=== PATIENT | female | born 1965 | race African-American/Black ===

== ENCOUNTER 2022-10-27 12:40 | Emergency (ER) | payer MEDICARE, MEDICAID ==
[~2022-10-27] VITALS: Ht 165.1 cm; Wt 127.3 kg
[2022-10-27 12:49] VITALS: TEMP 97.9
[2022-10-27] MEDS ORDERED: DULO20CA71 PO (12:50)
[2022-10-27] MEDS ORDERED: INSU100V12 SQ (12:50)
[2022-10-27] MEDS ORDERED: METO50 PO (12:50)
[2022-10-27] MEDS ORDERED: METF-81 PO (12:50)
[2022-10-27] MEDS ORDERED: ATOR20TA PO (12:50)
[2022-10-27] MEDS ORDERED: AMLO-257 PO (12:50)
[2022-10-27] MEDS ORDERED: LURA40TA2 PO (12:50)
[2022-10-27] MEDS ORDERED: LOSA-382 PO (12:50)
[2022-10-27] MEDS ORDERED: SODIUM CHLORIDE 0.9% 1,000 ML IV ONE ×2 (13:15→16:00)
[2022-10-27 13:27] LABS: APPEARANCE,URINE CLEAR (CLEAR); BILIRUBIN,URINE NEGATIVE (NEGATIVE); GLUCOSE, URINE (UA) >=1000 mg/dL (NEGATIVE); KETONES,URINE NEGATIVE (NEGATIVE); LEUKOCYTE ESTERASE ,URINE MODERATE (NEGATIVE); NITRATE,URINE NEGATIVE (NEGATIVE); OCCULT BLOOD,URINE SMALL (NEGATIVE); PROTEIN,URINE NEGATIVE (NEGATIVE); UROBILINOGEN,URINE <=1.0 mg/dL (<=1.0)
[2022-10-27 13:48] LABS: BASOPHILS % (AUTO) 0.6 % (0.0-2.0); EOSINOPHILS % (AUTO) 0.6 % (1.0-6.0); HEMOGLOBIN 11.6 g/dL (12.0-16.0); LYMPHOCYTES # (AUTO) 1.4 K/uL (1.0-4.8); MEAN CORPUSCULAR VOLUME 80 fL (80-100); NEUTROPHILS # (AUTO) 10.3 K/uL (1.8-7.7)
[2022-10-27 13:53] LABS: LYMPHOCYTES % (AUTO) 11.2 % (22.0-44.0); MEAN CORPUSCULAR HEMOGLOBIN 25.1 pg (26.0-34.0); MEAN CORPUSCULAR HGB CONC 31.3 G/dL (31.0-37.0); MONOCYTES # (AUTO) 0.6 K/uL (0.1-1.0); NEUTROPHILS % (AUTO) 82.6 % (40.0-70.0); PLATELET COUNT (AUTO) 314 K/uL (150-450); RED BLOOD CELL COUNT(AUTO) 4.62 MIL/uL (4.00-5.20); RED CELL DISTRIBUTION WIDTH 17.5 % (11.5-14.5)
[2022-10-27 13:59] LABS: WBC,URINE 26-50 /HPF (0-5)
[2022-10-27 14:00] LABS: BACTERIA,URINE Few /HPF (None Seen)
[2022-10-27 14:06] LABS: ACETONE,BLOOD NEGATIVE (NEGATIVE); ALANINE AMINOTRANSFERASE 14 U/L (12-78); ALBUMIN 3.1 g/dL (3.4-5.0); ALKALINE PHOSPHATASE 192 U/L (46-116); ANION GAP 10 mmol/L (8-16); ASPARTATE AMINOTRANSFERASE 14 U/L (15-37); BILIRUBIN,TOTAL 0.4 mg/dL (0.1-1.0); CARBON DIOXIDE 26 mmol/L (22-29); CHLORIDE 91 mmol/L (98-107); CREATININE 1.73 mg/dL (0.60-1.30); GLOMERULAR FILTR. RATE CALC 37 mL/min (>60); POTASSIUM 5.5 mmol/L (3.5-5.1); SODIUM SERUM 127 mmol/L (136-145); TOTAL PROTEIN, SERUM 8.6 g/dL (6.4-8.2)
[2022-10-27 14:09] LABS: GLUCOSE,RANDOM 653 mg/dL (70-110)
[2022-10-27] MEDS ORDERED: INSULIN REGULAR, HUMAN 100 UNITS/ML IVP ONE (14:15)
[2022-10-27] MEDS ORDERED: KETOROLAC TROMETHAMINE 30 MG/ML VIAL IVP ONE (14:15)
[2022-10-27] MEDS ORDERED: CEPHALEXIN MONOHYDRATE 500 MG CAPSULE PO ONE (14:15)
[2022-10-27 14:17] LABS: B-TYPE NATRIURETIC PEPTIDE 95 pg/mL (0-100)
[2022-10-27 14:36] LABS: GLUCOMETER DEV NAME(LOC) ER.6
[2022-10-27] MEDS ORDERED: ACETAMINOPHEN 500 MG TABLET PO ONE (15:00)
[2022-10-27] MEDS ORDERED: SODIUM CHLORIDE 0.9% 100 ML ONE (15:18)
[2022-10-27] MEDS ORDERED: IOHEXOL 350 MG/ML 100 ML VIAL ONE (15:18)
[2022-10-27 16:06] LABS: GLUCOMETER DEV NAME(LOC) ER.6
[2022-10-27 17:23] LABS: CALCIUM, TOTAL 7.8 mg/dL (8.8-10.5); CREATININE 1.23 mg/dL (0.60-1.30); POTASSIUM 4.4 mmol/L (3.5-5.1)
[2022-10-27] MEDS ORDERED: CEPH-558 PO (17:42)
[2022-10-27 18:00] VITALS: BP 123/81; PULSE 85; RESP 18
== END 2022-10-27 18:31 | disposition home or self-care (01) ==
LOC: EMS 12:40
DX: N39.0 Urinary tract infection, site not specified (principal); N64.4 Mastodynia; E11.65 Type 2 diabetes mellitus with hyperglycemia; F32.A Depression, unspecified; E78.00 Pure hypercholesterolemia, unspecified; I10 Essential (primary) hypertension; F20.9 Schizophrenia, unspecified; Z88.2 Allergy status to sulfonamides
CPT/HCPCS: 80048; 80053; 81001; 82009; 82962; 83880; 84484; 85025; 36415; 87086; 87186; 71045; 71275; 99285; 93005; 96361; 96374; J1815; Q9967; J7030; J7050

== ENCOUNTER 2022-10-29 17:49 | Inpatient (IN) | payer MEDICARE, MEDICAID ==
[~2022-10-29] VITALS: Ht 160 cm; Wt 130.0 kg
[~2022-10-29 17:49] MED LIST: AMLO-257 PO; ATOR20TA PO; CEPH-558 PO; DULO20CA71 PO; INSU100V12 SQ; LOSA-382 PO; LURA40TA2 PO; METF-81 PO; METO50 PO
[2022-10-29] MEDS ORDERED: NYST60PO TP (18:20)
[2022-10-29] MEDS ORDERED: HYDR100C2 PO (18:20)
[2022-10-29] MEDS ORDERED: SOLI5TAB6 PO (18:20)
[2022-10-29] MEDS ORDERED: DOXE100C4 PO (18:20)
[2022-10-29] MEDS ORDERED: LURA80TA4 PO (18:20)
[2022-10-29] MEDS ORDERED: SPIR-37 PO (18:20)
[2022-10-29] MEDS ORDERED: INSU100I56 SQ (18:20)
[2022-10-29] MEDS ORDERED: SEMA14TA2 PO (18:20)
[2022-10-29] MEDS ORDERED: LOSA100T59 PO (18:20)
[2022-10-29] MEDS ORDERED: METF-446 PO (18:20)
[2022-10-29] MEDS ORDERED: CefTRIAXone 1 GM/DEXTROSE 50 ML IV ONE (18:30)
[2022-10-29] MEDS ORDERED: SODIUM CHLORIDE 0.9% 2,100 ML IV ONE (18:30)
[2022-10-29] MEDS ORDERED: 0.9% SODIUM CHLORIDE 10 ML SYRINGE IVP PRN (18:30)
[2022-10-29] MEDS ORDERED: ACETAMINOPHEN 500 MG TABLET PO ONE (19:15)
[2022-10-29 19:23] LABS: BASOPHILS % (AUTO) 0.4 % (0.0-2.0); EOSINOPHILS % (AUTO) 0.1 % (1.0-6.0); HEMATOCRIT 32.1 % (36-46); HEMOGLOBIN 10.4 g/dL (12.0-16.0); LYMPHOCYTES # (AUTO) 0.8 K/uL (1.0-4.8); MEAN CORPUSCULAR HEMOGLOBIN 25.1 pg (26.0-34.0); MEAN CORPUSCULAR HGB CONC 32.3 G/dL (31.0-37.0); MEAN CORPUSCULAR VOLUME 78 fL (80-100); MONOCYTES # (AUTO) 0.8 K/uL (0.1-1.0); MONOCYTES % (AUTO) 7.5 % (2.0-9.0); NEUTROPHILS # (AUTO) 9.6 K/uL (1.8-7.7); PLATELET COUNT (AUTO) 268 K/uL (150-450); RED BLOOD CELL COUNT(AUTO) 4.14 MIL/uL (4.00-5.20); RED CELL DISTRIBUTION WIDTH 17.1 % (11.5-14.5)
[2022-10-29 19:27] LABS: CALCIUM, TOTAL 8.7 mg/dL (8.8-10.5); CREATININE 1.27 mg/dL (0.60-1.30); POTASSIUM 5.5 mmol/L (3.5-5.1)
[2022-10-29 19:34] LABS: ALBUMIN 2.6 g/dL (3.4-5.0); TOTAL PROTEIN, SERUM 7.7 g/dL (6.4-8.2)
[2022-10-29 19:35] LABS: LACTIC ACID 1.7 mmol/L (0.4-2.0)
[2022-10-29 19:37] LABS: PROTHROMBIN TIME 10.8 SEC (9.4-11.6)
[2022-10-29 21:10] LABS: APPEARANCE,URINE HAZY (CLEAR); BILIRUBIN,URINE NEGATIVE (NEGATIVE); GLUCOSE, URINE (UA) TRACE mg/dL (NEGATIVE); KETONES,URINE NEGATIVE (NEGATIVE); LEUKOCYTE ESTERASE ,URINE LARGE (NEGATIVE); NITRATE,URINE NEGATIVE (NEGATIVE); OCCULT BLOOD,URINE MODERATE (NEGATIVE); PH,URINE 5.5 (5.0-8.0); PROTEIN,URINE 30-70 mg/dL (NEGATIVE); SPECIFIC GRAVITIY, URINE 1.011 (1.003-1.030); UROBILINOGEN,URINE <=1.0 mg/dL (<=1.0)
[2022-10-29 21:34] LABS: WBC,URINE 26-50 /HPF (0-5)
[2022-10-29 21:36] LABS: BACTERIA,URINE Few /HPF (None Seen)
[2022-10-29] MEDS ORDERED: DEXTROSE 50%-WATER 25 GM/50 ML SYRINGE IVP PRN (22:00)
[2022-10-29] MEDS ORDERED: ZOLPIDEM TARTRATE 5 MG TABLET PO PRN (22:00)
[2022-10-29] MEDS ORDERED: BISACODYL 10 MG RECTAL RECTAL SUPPOSITORY PR PRN (22:00)
[2022-10-29] MEDS ORDERED: HydrOXYzine PAMOATE 50 MG CAPSULE PO PRN (22:00)
[2022-10-29] MEDS ORDERED: ACETAMINOPHEN 325 MG TABLET PO PRN (22:00)
[2022-10-29] MEDS ORDERED: ONDANSETRON HCL 4 MG/2 ML VIAL IVP PRN (22:00)
[2022-10-29] MEDS ORDERED: IPRATROPIUM BROMIDE 0.5 MG/2.5 ML NEB SOLUTION NEB PRN (22:00)
[2022-10-29] MEDS ORDERED: INSULIN LISPRO 100 UNITS/ML SQ PRN (22:00)
[2022-10-29] MEDS ORDERED: ALBUTEROL SULFATE 2.5 MG/0.5 ML NEB SOLUTION NEB PRN (22:00)
[2022-10-29 23:50] VITALS: BP 115/78; PULSE 87; RESP 20; TEMP 98.5
[2022-10-30 00:04] LABS: INFLUENZA TYPE A NEGATIVE FOR TYPE A (NEGATIVE); INFLUENZA TYPE B NEGATIVE FOR TYPE B (NEGATIVE)
[2022-10-30] MEDS: HEPARIN SODIUM,PORCINE 5,000 UNITS/ML VIAL SQ SCH ×4 (00:26→23:08)
[2022-10-30] MEDS: HYDROCODONE/ACETAMINOPHEN 5-325 MG TABLET PO PRN ×2 (00:27→20:51)
[2022-10-30 04:15] VITALS: BP 111/59; PULSE 79; RESP 20; TEMP 98.6
[2022-10-30 06:11] LABS: GLUCOMETER DEV NAME(LOC) 6S.2
[2022-10-30] MEDS ORDERED: INSULIN GLARGINE,HUM.REC.ANLOG 100 UNITS/ML SQ SCH (09:00)
[2022-10-30] MEDS: PANTOPRAZOLE SODIUM 40 MG DR TABLET PO SCH (09:00)
[2022-10-30] MEDS ORDERED: MISC MED-CONVERTED FROM AMBULATORY (Semaglutide (Rybelsus) 14 MG) PO SCH (09:00)
[2022-10-30] MEDS: SOLIFENACIN SUCCINATE 5 MG TABLET PO SCH (09:00)
[2022-10-30] MEDS: METOPROLOL TARTRATE 50 MG TABLET PO SCH ×2 (09:01→20:51)
[2022-10-30] MEDS: ATORVASTATIN CALCIUM 20 MG TABLET PO SCH (09:01)
[2022-10-30] MEDS: LOSARTAN POTASSIUM 50 MG TABLET PO SCH (09:01)
[2022-10-30] MEDS: AmLODIPine BESYLATE 5 MG TABLET PO SCH (09:01)
[2022-10-30] MEDS: MORPHINE SULFATE 2 MG/ML SYRINGE IVP PRN ×2 (09:02→12:41)
[2022-10-30] MEDS: NYSTATIN 15 GM POWDER BOTTLE TP SCH ×2 (09:02→20:52)
[2022-10-30 10:14] VITALS: BP 147/79; PULSE 98; RESP 17; TEMP 98.2
[2022-10-30] MEDS ORDERED: DEXTROSE 50%-WATER 25 GM/50 ML SYRINGE IVP PRN ×3 (12:15)
[2022-10-30] MEDS ORDERED: INSULIN GLARGINE,HUM.REC.ANLOG 100 UNITS/ML SQ ONE (12:15)
[2022-10-30] MEDS ORDERED: INSULIN LISPRO 100 UNITS/ML SQ PRN (12:15)
[2022-10-30] MEDS: INSULIN LISPRO 100 UNITS/ML SQ PRN ×3 (12:29→21:04)
[2022-10-30] MEDS ORDERED: INSULIN LISPRO 100 UNITS/ML SQ ONE (12:30)
[2022-10-30 13:54] LABS: BASOPHILS % (AUTO) 0.6 % (0.0-2.0); EOSINOPHILS % (AUTO) 0.7 % (1.0-6.0); HEMATOCRIT 32.6 % (36-46); HEMOGLOBIN 10.4 g/dL (12.0-16.0); LYMPHOCYTES # (AUTO) 1.6 K/uL (1.0-4.8); LYMPHOCYTES % (AUTO) 24.2 % (22.0-44.0); MEAN CORPUSCULAR HEMOGLOBIN 24.9 pg (26.0-34.0); MEAN CORPUSCULAR HGB CONC 31.7 G/dL (31.0-37.0); MEAN CORPUSCULAR VOLUME 79 fL (80-100); MONOCYTES # (AUTO) 0.7 K/uL (0.1-1.0); NEUTROPHILS # (AUTO) 4.4 K/uL (1.8-7.7); NEUTROPHILS % (AUTO) 64.5 % (40.0-70.0); PLATELET COUNT (AUTO) 237 K/uL (150-450); RED BLOOD CELL COUNT(AUTO) 4.15 MIL/uL (4.00-5.20); RED CELL DISTRIBUTION WIDTH 17.6 % (11.5-14.5)
[2022-10-30 13:57] LABS: GLUCOMETER DEV NAME(LOC) 6N.2B
[2022-10-30 13:57] LABS: GLUCOMETER DEV NAME(LOC) 6N.2B
[2022-10-30 14:08] LABS: ALANINE AMINOTRANSFERASE 15 U/L (12-78); ALBUMIN 2.3 g/dL (3.4-5.0); ALKALINE PHOSPHATASE 210 U/L (46-116); ANION GAP 7 mmol/L (8-16); ASPARTATE AMINOTRANSFERASE 34 U/L (15-37); BILIRUBIN,TOTAL 0.7 mg/dL (0.1-1.0); CALCIUM, TOTAL 8.7 mg/dL (8.8-10.5); CARBON DIOXIDE 27 mmol/L (22-29); CHLORIDE 98 mmol/L (98-107); CREATININE 1.09 mg/dL (0.60-1.30); GLOMERULAR FILTR. RATE CALC > 60 mL/min (>60); POTASSIUM 5.3 mmol/L (3.5-5.1); SODIUM SERUM 132 mmol/L (136-145); TOTAL PROTEIN, SERUM 7.4 g/dL (6.4-8.2)
[2022-10-30 14:13] LABS: GLUCOSE,RANDOM 401 mg/dL (70-110)
[2022-10-30 20:10] VITALS: BP 140/83; PULSE 73; RESP 20; TEMP 100
[2022-10-30] MEDS: LURASIDONE HCL 80 MG TABLET PO SCH (20:51)
[2022-10-30] MEDS: INSULIN GLARGINE,HUM.REC.ANLOG 100 UNITS/ML SQ SCH (21:03)
[2022-10-30 21:11] LABS: GLUCOMETER DEV NAME(LOC) 6N.1
[2022-10-30] MEDS: DOXEPIN HCL 100 MG CAPSULE PO SCH (23:07)
[2022-10-31 03:21] LABS: GLUCOMETER DEV NAME(LOC) 4E.2
[2022-10-31 05:00] VITALS: BP 103/88; PULSE 68; RESP 16; TEMP 98.7
[2022-10-31] MEDS: INSULIN LISPRO 100 UNITS/ML SQ PRN ×4 (06:04→20:26)
[2022-10-31 07:08] LABS: BASOPHILS % (AUTO) 0.5 % (0.0-2.0); EOSINOPHILS % (AUTO) 1.8 % (1.0-6.0); HEMATOCRIT 30.4 % (36-46); HEMOGLOBIN 9.7 g/dL (12.0-16.0); LYMPHOCYTES # (AUTO) 2.6 K/uL (1.0-4.8); LYMPHOCYTES % (AUTO) 30.6 % (22.0-44.0); MEAN CORPUSCULAR HEMOGLOBIN 25.3 pg (26.0-34.0); MEAN CORPUSCULAR HGB CONC 32.1 G/dL (31.0-37.0); MEAN CORPUSCULAR VOLUME 79 fL (80-100); MONOCYTES # (AUTO) 1.2 K/uL (0.1-1.0); MONOCYTES % (AUTO) 13.5 % (2.0-9.0); NEUTROPHILS # (AUTO) 4.6 K/uL (1.8-7.7); NEUTROPHILS % (AUTO) 53.6 % (40.0-70.0); PLATELET COUNT (AUTO) 272 K/uL (150-450); RED BLOOD CELL COUNT(AUTO) 3.85 MIL/uL (4.00-5.20); RED CELL DISTRIBUTION WIDTH 17.2 % (11.5-14.5)
[2022-10-31 07:28] LABS: ALANINE AMINOTRANSFERASE 22 U/L (12-78); ALBUMIN 2.2 g/dL (3.4-5.0); ALKALINE PHOSPHATASE 177 U/L (46-116); ANION GAP 6 mmol/L (8-16); ASPARTATE AMINOTRANSFERASE 22 U/L (15-37); BILIRUBIN,TOTAL 0.5 mg/dL (0.1-1.0); CALCIUM, TOTAL 8.8 mg/dL (8.8-10.5); CARBON DIOXIDE 28 mmol/L (22-29); CHLORIDE 102 mmol/L (98-107); CREATININE 0.79 mg/dL (0.60-1.30); GLOMERULAR FILTR. RATE CALC > 60 mL/min (>60); GLUCOSE,RANDOM 184 mg/dL (70-110); POTASSIUM 4.3 mmol/L (3.5-5.1); SODIUM SERUM 136 mmol/L (136-145); TOTAL PROTEIN, SERUM 7.1 g/dL (6.4-8.2)
[2022-10-31 07:47] VITALS: BP 121/71; PULSE 75; RESP 19; TEMP 98.3
[2022-10-31] MEDS: ATORVASTATIN CALCIUM 20 MG TABLET PO SCH (08:44)
[2022-10-31] MEDS: HEPARIN SODIUM,PORCINE 5,000 UNITS/ML VIAL SQ SCH ×3 (08:44→23:49)
[2022-10-31] MEDS: SOLIFENACIN SUCCINATE 5 MG TABLET PO SCH (08:44)
[2022-10-31] MEDS: PANTOPRAZOLE SODIUM 40 MG DR TABLET PO SCH (08:45)
[2022-10-31] MEDS: LOSARTAN POTASSIUM 50 MG TABLET PO SCH (08:45)
[2022-10-31] MEDS: AmLODIPine BESYLATE 5 MG TABLET PO SCH (08:45)
[2022-10-31] MEDS: METOPROLOL TARTRATE 50 MG TABLET PO SCH ×2 (08:46→20:27)
[2022-10-31] MEDS: HYDROCODONE/ACETAMINOPHEN 5-325 MG TABLET PO PRN (08:47)
[2022-10-31] MEDS: INSULIN GLARGINE,HUM.REC.ANLOG 100 UNITS/ML SQ SCH ×2 (09:01→20:28)
[2022-10-31] MEDS: NYSTATIN 15 GM POWDER BOTTLE TP SCH ×2 (09:01→20:31)
[2022-10-31] MEDS: MORPHINE SULFATE 2 MG/ML SYRINGE IVP PRN ×3 (09:02→20:32)
[2022-10-31] MEDS ORDERED: DENTURE ADHESIVE 68 GM CREAM DT PRN (11:15)
[2022-10-31] MEDS: MAGNESIUM HYDROXIDE SUSPENSION 30 ML UDCUP PO PRN (13:51)
[2022-10-31 15:15] VITALS: BP 113/61; PULSE 69; RESP 20; TEMP 98.6
[2022-10-31 18:16] LABS: GLUCOMETER DEV NAME(LOC) 4E.2
[2022-10-31 18:16] LABS: GLUCOMETER DEV NAME(LOC) 6S.2
[2022-10-31 18:16] LABS: GLUCOMETER DEV NAME(LOC) 4E.2
[2022-10-31 19:38] VITALS: BP 116/56; PULSE 70; RESP 18; TEMP 98.4
[2022-10-31] MEDS: DOXEPIN HCL 100 MG CAPSULE PO SCH (20:27)
[2022-10-31] MEDS: LURASIDONE HCL 80 MG TABLET PO SCH (20:27)
[2022-10-31 22:30] VITALS: BP 116/64; PULSE 73; RESP 18; TEMP 97.6
[2022-10-31] MEDS ORDERED: SODIUM CHLORIDE 0.9% 500 ML IV ONE (23:31)
[2022-10-31] MEDS: CefTRIAXone 1 GM/DEXTROSE 50 ML IV SCH (23:49)
[2022-11-01 05:10] VITALS: BP 119/63; PULSE 70; RESP 20; TEMP 98
[2022-11-01 06:42] LABS: GLUCOMETER DEV NAME(LOC) 6N.1
[2022-11-01 06:42] LABS: GLUCOMETER DEV NAME(LOC) 6N.1
[2022-11-01 07:27] LABS: EOSINOPHILS % (AUTO) 1.4 % (1.0-6.0); HEMATOCRIT 31.3 % (36-46); HEMOGLOBIN 9.8 g/dL (12.0-16.0); LYMPHOCYTES # (AUTO) 3.1 K/uL (1.0-4.8); LYMPHOCYTES % (AUTO) 30.7 % (22.0-44.0); MEAN CORPUSCULAR HEMOGLOBIN 24.6 pg (26.0-34.0); MEAN CORPUSCULAR HGB CONC 31.3 G/dL (31.0-37.0); MEAN CORPUSCULAR VOLUME 79 fL (80-100); MONOCYTES % (AUTO) 9.4 % (2.0-9.0); NEUTROPHILS # (AUTO) 5.8 K/uL (1.8-7.7); NEUTROPHILS % (AUTO) 57.5 % (40.0-70.0); PLATELET COUNT (AUTO) 307 K/uL (150-450); RED BLOOD CELL COUNT(AUTO) 3.99 MIL/uL (4.00-5.20); RED CELL DISTRIBUTION WIDTH 17.2 % (11.5-14.5)
[2022-11-01 07:34] LABS: ALANINE AMINOTRANSFERASE 20 U/L (12-78); ALBUMIN 2.3 g/dL (3.4-5.0); ALKALINE PHOSPHATASE 191 U/L (46-116); ANION GAP 9 mmol/L (8-16); ASPARTATE AMINOTRANSFERASE 24 U/L (15-37); BILIRUBIN,TOTAL 0.4 mg/dL (0.1-1.0); CALCIUM, TOTAL 8.9 mg/dL (8.8-10.5); CARBON DIOXIDE 30 mmol/L (22-29); CHLORIDE 100 mmol/L (98-107); CREATININE 0.99 mg/dL (0.60-1.30); GLOMERULAR FILTR. RATE CALC > 60 mL/min (>60); GLUCOSE,RANDOM 104 mg/dL (70-110); POTASSIUM 4.4 mmol/L (3.5-5.1); SODIUM SERUM 139 mmol/L (136-145); TOTAL PROTEIN, SERUM 7.3 g/dL (6.4-8.2)
[2022-11-01 07:37] VITALS: BP 126/75; PULSE 66; RESP 20; TEMP 98.3
[2022-11-01] MEDS: SOLIFENACIN SUCCINATE 5 MG TABLET PO SCH (08:51)
[2022-11-01] MEDS: AmLODIPine BESYLATE 5 MG TABLET PO SCH (08:51)
[2022-11-01] MEDS: ATORVASTATIN CALCIUM 20 MG TABLET PO SCH (08:51)
[2022-11-01] MEDS: HEPARIN SODIUM,PORCINE 5,000 UNITS/ML VIAL SQ SCH ×3 (08:51→23:23)
[2022-11-01] MEDS: METOPROLOL TARTRATE 50 MG TABLET PO SCH ×2 (08:51→20:51)
[2022-11-01] MEDS: PANTOPRAZOLE SODIUM 40 MG DR TABLET PO SCH (08:51)
[2022-11-01] MEDS: LOSARTAN POTASSIUM 50 MG TABLET PO SCH (08:51)
[2022-11-01] MEDS: INSULIN GLARGINE,HUM.REC.ANLOG 100 UNITS/ML SQ SCH ×2 (08:58→21:02)
[2022-11-01] MEDS: NYSTATIN 15 GM POWDER BOTTLE TP SCH ×2 (09:01→21:05)
[2022-11-01] MEDS: INSULIN LISPRO 100 UNITS/ML SQ PRN ×3 (11:34→21:03)
[2022-11-01] MEDS: KETOROLAC TROMETHAMINE 15 MG/ML VIAL IVP SCH ×3 (12:21→23:17)
[2022-11-01 13:41] LABS: GLUCOMETER DEV NAME(LOC) 6N.2B
[2022-11-01] MEDS: MORPHINE SULFATE 2 MG/ML SYRINGE IVP PRN ×2 (16:57→21:08)
[2022-11-01 20:11] VITALS: BP 121/82; PULSE 66; RESP 20; TEMP 98
[2022-11-01 20:36] LABS: GLUCOMETER DEV NAME(LOC) 6N.2B
[2022-11-01] MEDS: LURASIDONE HCL 80 MG TABLET PO SCH (20:51)
[2022-11-01] MEDS: DOXEPIN HCL 100 MG CAPSULE PO SCH (20:58)
[2022-11-01] MEDS: CefTRIAXone 1 GM/DEXTROSE 50 ML IV SCH (23:16)
[2022-11-02 04:33] VITALS: BP 126/78; PULSE 67; RESP 20; TEMP 97.9
[2022-11-02 05:36] LABS: GLUCOMETER DEV NAME(LOC) 6N.1
[2022-11-02] MEDS: KETOROLAC TROMETHAMINE 15 MG/ML VIAL IVP SCH ×4 (06:05→23:36)
[2022-11-02 06:57] LABS: BASOPHILS % (AUTO) 0.5 % (0.0-2.0); EOSINOPHILS % (AUTO) 3.8 % (1.0-6.0); HEMATOCRIT 30.9 % (36-46); HEMOGLOBIN 9.6 g/dL (12.0-16.0); LYMPHOCYTES # (AUTO) 3.1 K/uL (1.0-4.8); LYMPHOCYTES % (AUTO) 37.1 % (22.0-44.0); MEAN CORPUSCULAR HEMOGLOBIN 24.5 pg (26.0-34.0); MEAN CORPUSCULAR HGB CONC 31.1 G/dL (31.0-37.0); MEAN CORPUSCULAR VOLUME 79 fL (80-100); MONOCYTES # (AUTO) 0.6 K/uL (0.1-1.0); MONOCYTES % (AUTO) 7.2 % (2.0-9.0); NEUTROPHILS # (AUTO) 4.2 K/uL (1.8-7.7); NEUTROPHILS % (AUTO) 51.4 % (40.0-70.0); PLATELET COUNT (AUTO) 354 K/uL (150-450); RED BLOOD CELL COUNT(AUTO) 3.92 MIL/uL (4.00-5.20); RED CELL DISTRIBUTION WIDTH 17.7 % (11.5-14.5)
[2022-11-02 07:12] LABS: ALANINE AMINOTRANSFERASE 17 U/L (12-78); ALBUMIN 2.2 g/dL (3.4-5.0); ALKALINE PHOSPHATASE 186 U/L (46-116); ANION GAP 6 mmol/L (8-16); ASPARTATE AMINOTRANSFERASE 20 U/L (15-37); BILIRUBIN,TOTAL 0.3 mg/dL (0.1-1.0); CALCIUM, TOTAL 8.9 mg/dL (8.8-10.5); CARBON DIOXIDE 29 mmol/L (22-29); CHLORIDE 103 mmol/L (98-107); CREATININE 1.04 mg/dL (0.60-1.30); GLOMERULAR FILTR. RATE CALC > 60 mL/min (>60); GLUCOSE,RANDOM 98 mg/dL (70-110); POTASSIUM 4.4 mmol/L (3.5-5.1); SODIUM SERUM 138 mmol/L (136-145)
[2022-11-02 07:37] VITALS: BP 108/74; PULSE 59; RESP 20; TEMP 97.9
[2022-11-02] MEDS: SOLIFENACIN SUCCINATE 5 MG TABLET PO SCH (08:18)
[2022-11-02] MEDS: HEPARIN SODIUM,PORCINE 5,000 UNITS/ML VIAL SQ SCH ×3 (08:18→23:36)
[2022-11-02] MEDS: ATORVASTATIN CALCIUM 20 MG TABLET PO SCH (08:19)
[2022-11-02] MEDS: AmLODIPine BESYLATE 5 MG TABLET PO SCH (08:19)
[2022-11-02] MEDS: PANTOPRAZOLE SODIUM 40 MG DR TABLET PO SCH (08:19)
[2022-11-02] MEDS: INSULIN GLARGINE,HUM.REC.ANLOG 100 UNITS/ML SQ SCH ×2 (08:24→20:21)
[2022-11-02 08:26] LABS: GLUCOMETER DEV NAME(LOC) 4E.2
[2022-11-02] MEDS: MORPHINE SULFATE 2 MG/ML SYRINGE IVP PRN ×2 (08:28→15:13)
[2022-11-02] MEDS: MAGNESIUM HYDROXIDE SUSPENSION 30 ML UDCUP PO PRN (08:29)
[2022-11-02] MEDS: NYSTATIN 15 GM POWDER BOTTLE TP SCH ×2 (08:30→20:26)
[2022-11-02] MEDS ORDERED: IOHEXOL 350 MG/ML 100 ML VIAL ONE ×2 (11:16→11:36)
[2022-11-02] MEDS ORDERED: SODIUM CHLORIDE 0.9% 100 ML ONE (11:16)
[2022-11-02] MEDS: INSULIN LISPRO 100 UNITS/ML SQ PRN ×3 (11:52→20:22)
[2022-11-02] MEDS: METOPROLOL TARTRATE 50 MG TABLET PO SCH ×2 (12:07→20:19)
[2022-11-02] MEDS: LOSARTAN POTASSIUM 50 MG TABLET PO SCH (12:07)
[2022-11-02 19:01] LABS: GLUCOMETER DEV NAME(LOC) 6N.1
[2022-11-02 19:01] LABS: GLUCOMETER DEV NAME(LOC) 6N.1
[2022-11-02 19:01] LABS: GLUCOMETER DEV NAME(LOC) 4E.2
[2022-11-02] MEDS ORDERED: LACTULOSE 20 GM/30 ML SOLUTION UDCUP PO ONE (19:15)
[2022-11-02 19:38] VITALS: BP 120/65; PULSE 66; RESP 20; TEMP 98.6
[2022-11-02] MEDS: LURASIDONE HCL 80 MG TABLET PO SCH (20:19)
[2022-11-02] MEDS: DOCUSATE SODIUM 100 MG CAPSULE PO SCH (20:19)
[2022-11-02] MEDS: DOXEPIN HCL 100 MG CAPSULE PO SCH (20:20)
[2022-11-02 22:16] LABS: GLUCOMETER DEV NAME(LOC) 6N.1
[2022-11-02] MEDS: CefTRIAXone 1 GM/DEXTROSE 50 ML IV SCH (23:36)
[2022-11-03 04:28] VITALS: BP 113/56; PULSE 65; RESP 20; TEMP 98.9
[2022-11-03] MEDS: KETOROLAC TROMETHAMINE 15 MG/ML VIAL IVP SCH ×2 (06:00→11:53)
[2022-11-03 07:23] LABS: BASOPHILS % (AUTO) 0.4 % (0.0-2.0); EOSINOPHILS % (AUTO) 3.3 % (1.0-6.0); HEMATOCRIT 32.3 % (36-46); HEMOGLOBIN 10.1 g/dL (12.0-16.0); LYMPHOCYTES # (AUTO) 2.7 K/uL (1.0-4.8); LYMPHOCYTES % (AUTO) 24.5 % (22.0-44.0); MEAN CORPUSCULAR HEMOGLOBIN 25.3 pg (26.0-34.0); MEAN CORPUSCULAR HGB CONC 31.4 G/dL (31.0-37.0); MEAN CORPUSCULAR VOLUME 81 fL (80-100); MONOCYTES # (AUTO) 0.8 K/uL (0.1-1.0); MONOCYTES % (AUTO) 7.5 % (2.0-9.0); NEUTROPHILS % (AUTO) 64.3 % (40.0-70.0); PLATELET COUNT (AUTO) 362 K/uL (150-450); RED CELL DISTRIBUTION WIDTH 17.4 % (11.5-14.5)
[2022-11-03 07:50] LABS: ALANINE AMINOTRANSFERASE 13 U/L (12-78); ALBUMIN 2.3 g/dL (3.4-5.0); ALKALINE PHOSPHATASE 187 U/L (46-116); ANION GAP 8 mmol/L (8-16); ASPARTATE AMINOTRANSFERASE 22 U/L (15-37); BILIRUBIN,TOTAL 0.3 mg/dL (0.1-1.0); CALCIUM, TOTAL 9.1 mg/dL (8.8-10.5); CARBON DIOXIDE 26 mmol/L (22-29); CHLORIDE 102 mmol/L (98-107); CREATININE 1.01 mg/dL (0.60-1.30); GLOMERULAR FILTR. RATE CALC > 60 mL/min (>60); GLUCOSE,RANDOM 148 mg/dL (70-110); POTASSIUM 4.9 mmol/L (3.5-5.1); SODIUM SERUM 136 mmol/L (136-145); TOTAL PROTEIN, SERUM 7.2 g/dL (6.4-8.2)
[2022-11-03] MEDS: DOCUSATE SODIUM 100 MG CAPSULE PO SCH (08:19)
[2022-11-03] MEDS: HEPARIN SODIUM,PORCINE 5,000 UNITS/ML VIAL SQ SCH ×2 (08:19→15:41)
[2022-11-03] MEDS: PANTOPRAZOLE SODIUM 40 MG DR TABLET PO SCH (08:19)
[2022-11-03] MEDS: ATORVASTATIN CALCIUM 20 MG TABLET PO SCH (08:20)
[2022-11-03] MEDS: SOLIFENACIN SUCCINATE 5 MG TABLET PO SCH (08:20)
[2022-11-03] MEDS: INSULIN GLARGINE,HUM.REC.ANLOG 100 UNITS/ML SQ SCH (08:25)
[2022-11-03] MEDS: NYSTATIN 15 GM POWDER BOTTLE TP SCH (08:25)
[2022-11-03] MEDS: AmLODIPine BESYLATE 5 MG TABLET PO SCH (08:27)
[2022-11-03] MEDS: METOPROLOL TARTRATE 50 MG TABLET PO SCH (08:27)
[2022-11-03] MEDS: LOSARTAN POTASSIUM 50 MG TABLET PO SCH (08:27)
[2022-11-03 09:00] VITALS: BP 94/50; PULSE 63; RESP 18; TEMP 97.7
[2022-11-03 11:38] VITALS: BP 100/69; PULSE 63; RESP 18
[2022-11-03] MEDS: MORPHINE SULFATE 2 MG/ML SYRINGE IVP PRN (11:42)
[2022-11-03] MEDS: INSULIN LISPRO 100 UNITS/ML SQ PRN (12:08)
[2022-11-03] MEDS ORDERED: LEVOFLOXACIN 750 MG TABLET PO SCH (13:00)
[2022-11-03] MEDS ORDERED: LEVO750T68 PO (13:21)
[2022-11-03] MEDS ORDERED: METO25 PO (13:21)
[2022-11-03] MEDS ORDERED: LOSA-381 PO (13:21)
[2022-11-03 15:26] LABS: GLUCOMETER DEV NAME(LOC) 6N.2B
[2022-11-03 17:01] VITALS: BP 162/68; PULSE 71; RESP 20; TEMP 98.6
[2022-11-03 21:51] LABS: GLUCOMETER DEV NAME(LOC) 4E.2
== END 2022-11-03 16:35 | disposition home or self-care (01) | DRG 690 ==
LOC: EMS 17:49 → 6S 22:38
PROVIDERS: ADMIT Hospitalist; ATTEND Hospitalist
DX: N39.0 Urinary tract infection, site not specified (principal); E87.1 Hypo-osmolality and hyponatremia; E44.0 Moderate protein-calorie malnutrition; Z68.43 Body mass index [BMI] 50.0-59.9, adult; R65.10 Systemic inflammatory response syndrome (SIRS) of non-infectious origin without acute organ dysfunction; R07.81 Pleurodynia; I10 Essential (primary) hypertension; F20.9 Schizophrenia, unspecified; E87.5 Hyperkalemia; E66.01 Morbid (severe) obesity due to excess calories; E11.65 Type 2 diabetes mellitus with hyperglycemia; F32.A Depression, unspecified; K59.00 Constipation, unspecified; E78.00 Pure hypercholesterolemia, unspecified; Z79.899 Other long term (current) drug therapy; Z88.8 Allergy status to other drugs, medicaments and biological substances; Z88.2 Allergy status to sulfonamides
CPT/HCPCS: 71045; 71260; 80053; 81001; 82962; 83605; 83880; 84145; 84484; 85025; 85610; 87040; 87077; 87086; 87186; 87205; 87804; 93005; 99291; G0378; J0696; J1644; J1815; J1885; J2270; J7040; J7050; Q9967; 36415-L1; 36415-TC